=== PATIENT | female | born 1955 | race Caucasian/White ===

== ENCOUNTER → 2023-10-24 13:23 | Outpatient (CLI) | payer MEDICARE, SELFPAY ==
--- NOTE | ~2023-10-24 | MR_ITS ---
EXAMINATION: MR knee LT wo con DATE: 10/24/2023 14:16 INDICATION: Left knee pain TECHNIQUE: Magnetic resonance imaging (MRI) of the left knee was performed without intravenous contra st. Sequences included coronal PD-weighted FSE, coronal PD-weighted FS FSE, sagittal T2-weighted FSE , sagittal PD-weighted FS FSE and axial PD weighted fat saturated FSE. COMPARISON: None. FINDINGS: Medial compartment: Complex tear at the posterior horn of the medial meniscus with radial tear/avulsion at or near the po sterior root of the medial meniscus. There is a longitudinal vertical component to the tear which ext ends additional 1 cm medially at the inferior articular surface at the peripheral third of the customer operations specialist ior horn. There is deep chondral ulceration involving the anterior weightbearing medial femoral condy le with some underlying subarticular edema-like signal change. There is relatively abrupt transition to relatively preserved cartilage thickness at the central weightbearing medial femoral condyle . The re is linear increased signal extending along the deep cartilage at the junction of the central to po sterior weightbearing medial femoral condyle which could be due to deep fissuring or deep blisterlike delamination at or near the bone chondral interface. Cartilage along the medial tibial plateau is re latively preserved. Lateral compartment: Small radial tear involving the free edge and inner third of the body of the lateral meniscus. Small nondisplaced chondral flaps associated with a region of deep fissuring involving greater than 50% the cartilage thickness at the central aspect of the anterior weightbearing lateral femoral condyle. The re are some shallow chondral ulceration along the medial rim of the anterior weightbearing lateral fe moral condyle. Deep chondral ulceration and fissuring at the medial half of the lateral tibial platea u including along the shoulder the intercondylar eminence. Patellofemoral compartment: Extensive full/near full-thickness chondral ulceration with remodeling of the articular cortices invo lving the majority the lateral patellar facet and lateral trochlea. Small region of full-thickness ne ar full-thickness chondral ulceration with underlying or irregularity and subarticular edema-like sig nal change at the inferior aspect of the trochlear groove and . Mild partial-thickness cartilage loss and chondral surface regularity at the medial facet and medial trochlea. Ligaments and tendons: Anterior and posterior cruciate ligaments are normal. The medial collateral ligament and fibular nanda ateral ligament complex are normal. The extensor mechanism is normal. The visualized medial and later al hamstring tendons as well as the iliotibial band are normal. Fluid: Small to moderate-sized left knee joint effusion. No loose osteochondral bodies identified. Osseous/other: There is 1.5 cm lateral patellar subluxation. No fracture or pathologic marrow replacing process. IMPRESSION: 1. Complex tear at the posterior horn of the medial meniscus including a radial tear/avulsion at or n ear the posterior root. 2. Small radial tear involving the inner third of the body of the lateral meniscus. 3. 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 4. Small to moderate-sized left knee joint effusion. Reviewed, dictated and finalized at location A. FARMER IMPRESSION: 1. Complex tear at the posterior horn of the medial meniscus including a radial tear/avulsion at or near the posterior root. 2. Small radial tear involving the inner third of the body of the lateral menis cus. 3. Advanced osteoarthritis at the lateral aspect patellofemoral compartment
== END ==
PROVIDERS: PCP Family Medicine; Visit Provider Physician Assistant
DX: S83.232A Complex tear of medial meniscus, current injury, left knee, initial encounter (principal); X58.XXXA Exposure to other specified factors, initial encounter; M25.462 Effusion, left knee; M17.12 Unilateral primary osteoarthritis, left knee
CPT/HCPCS: 73721